=== PATIENT | female | born 1955 | race American Indian/Alaskan Native ===

== ENCOUNTER 2017-12-07 09:56 | Outpatient (CLI) | payer BC ==
--- NOTE | 2017-12-07 11:56 | Cat Scan Report ---
CT NECK WITH CONTRAST: 12/07/17 09:56:00 CLINICAL: Lump left neck. TECHNIQUE: A skin marker was placed on the left neck where a lump is felt. Volumetric acquisition and 1.25 mm scan reconstructions after the uneventful intravenous injection of 100-cc Omnipaque 350. Consent was obtained prior to the administration of the IV contrast. FINDINGS: A mildly enlarged left submandibular gland correlates with the palpable lump in the left neck area measures 3.6 x 1.9 x 1.9 cm and has normal architecture. No dilatation of the submandibular duct, no evidence of a submandibular stone and no inflammatory changes. The right submandibular gland measures 2.3 x 1.7 x 0.8 cm and has normal architecture. No mass or lymphadenopathy of the neck. Normal mucosal structures of the nasopharynx, oropharynx, hypopharynx and larynx. The parapharyngeal spaces are normal. Mild bilateral carotid artery calcifications. Normal thyroid. The upper lung barba are clear. IMPRESSION: 1. Mild asymmetric enlargement of the left submandibular gland which correlates with the palpable lump in the left neck. 2. No mass or lymphadenopathy.
== END 2017-12-07 09:57 | disposition home or self-care (01) ==
LOC: SPVIMAG 09:56
PROVIDERS: ATTEND Internal Medicine
DX: R59.1 Generalized enlarged lymph nodes (principal)
CPT/HCPCS: 70491; Q9967

== ENCOUNTER 2021-06-12 11:25 | Outpatient (CLI) | payer MEDICARE ==
--- NOTE | 2021-06-12 11:56 | Cat Scan Report ---
CT head without contrast INDICATION : HEADACHE R51.9. TECHNIQUE: Axial imaging performed from the skull apex through the skull base without the use of con trast. All CT scans at this location are performed using CT dose reduction for ALARA by means of aut omated exposure control. COMPARISON: None FINDINGS: Parenchyma: No acute intracranial hemorrhage or parenchymal abnormality. Ventricles: Ventricles are normal in size and appear symmetric. Soft tissues: Soft tissues including the orbits appear normal. Bones: No acute osseous abnormality. Sinuses: Sinuses and mastoid air cells are clear. IMPRESSION: No acute abnormality. Signer Name: Armando Recinos MD Signed: 06/12/2021 11:51 AM Workstation Name: [id number]
== END 2021-06-12 11:26 | disposition home or self-care (01) ==
LOC: SPVIMAG 11:25
PROVIDERS: ATTEND Internal Medicine
DX: R51.9 Headache, unspecified (principal)
CPT/HCPCS: 70450